=== PATIENT | male | born 1940 | race Two or more races ===

== ENCOUNTER 2024-01-29 14:25 | Emergency (ER) | payer OTHER ==
[~2024-01-29] VITALS: Ht 162.6 cm; Wt 62.7 kg
[2024-01-29 14:28] VITALS: TEMP 98
[2024-01-29 14:58] VITALS: PULSE 83; RESP 24; O2SAT 94
[2024-01-29] MEDS: IPRATROPIUM BROMIDE 0.5 MG/2.5 ML NEB SOLUTION NEB ONE (14:58)
[2024-01-29] MEDS: ALBUTEROL SULFATE 2.5 MG/0.5 ML NEB SOLUTION NEB ONE (14:58)
[2024-01-29] MEDS: PredniSONE 20 MG TABLET PO ONE (15:11)
[2024-01-29 15:13] VITALS: PULSE 81; RESP 20; O2SAT 100
[2024-01-29 15:15] VITALS: BP 144/71; PULSE 88; RESP 20
[2024-01-29 15:16] LABS: BASOPHILS % (AUTO) 0.5 % (0.0-2.0); EOSINOPHILS % (AUTO) 0.9 % (1.0-6.0); HEMATOCRIT 39.9 % (41-53); HEMOGLOBIN 13.3 g/dL (13.5-17.5); LYMPHOCYTES # (AUTO) 1.3 K/uL (1.0-4.8); LYMPHOCYTES % (AUTO) 10.6 % (22.0-44.0); MEAN CORPUSCULAR HEMOGLOBIN 29.5 pg (26.0-34.0); MEAN CORPUSCULAR HGB CONC 33.3 G/dL (31.0-37.0); MEAN CORPUSCULAR VOLUME 89 fL (80-100); MONOCYTES # (AUTO) 1.1 K/uL (0.1-1.0); MONOCYTES % (AUTO) 8.8 % (2.0-9.0); NEUTROPHILS # (AUTO) 9.5 K/uL (1.8-7.7); NEUTROPHILS % (AUTO) 79.2 % (40.0-70.0); PLATELET COUNT (AUTO) 191 K/uL (150-450); RED BLOOD CELL COUNT(AUTO) 4.51 MIL/uL (4.50-5.90); RED CELL DISTRIBUTION WIDTH 15.2 % (11.5-14.5)
[2024-01-29 15:24] LABS: ANION GAP 4 mmol/L (8-16); CARBON DIOXIDE 32 mmol/L (22-29); CHLORIDE 103 mmol/L (98-107); GLOMERULAR FILTR. RATE CALC > 60 mL/min (>60); GLUCOSE,RANDOM 117 mg/dL (70-110); POTASSIUM 4.2 mmol/L (3.5-5.1); SODIUM SERUM 138 mmol/L (136-145); UREA NITROGEN, BLOOD 17 mg/dL (7-18)
[2024-01-29 15:31] LABS: ALANINE AMINOTRANSFERASE 24 U/L (12-78); ALBUMIN 2.9 g/dL (3.4-5.0); ALKALINE PHOSPHATASE 86 U/L (46-116); ASPARTATE AMINOTRANSFERASE 23 U/L (15-37); BILIRUBIN,TOTAL 0.5 mg/dL (0.1-1.0); TOTAL PROTEIN, SERUM 7.4 g/dL (6.4-8.2)
[2024-01-29 15:32] LABS: TROPONIN I-HIGH SENSITIVITY 5 ng/L (<76)
[2024-01-29] MEDS ORDERED: AZIT250T9 PO (16:48)
[2024-01-29] MEDS ORDERED: ALBU18HF12 IH (16:48)
[2024-01-29] MEDS ORDERED: PRED-554 PO (16:48)
== END 2024-01-29 17:12 | disposition home or self-care (01) ==
LOC: EMS 14:25
DX: J44.1 Chronic obstructive pulmonary disease with (acute) exacerbation (principal); Z91.013 Allergy to seafood; Z91.048 Other nonmedicinal substance allergy status
CPT/HCPCS: 99285; 71045; 80053; 84484; 85025; 36415; 94640; 93005; J7512; J7613

== ENCOUNTER 2024-05-15 13:50 | Emergency (ER) | payer OTHER ==
[~2024-05-15] VITALS: Ht 170.2 cm; Wt 65.9 kg
[~2024-05-15 13:50] MED LIST: ALBU18HF12 IH; PRED-554 PO
[2024-05-15 13:54] VITALS: BP 137/70; PULSE 90; RESP 18; TEMP 98.5; O2SAT 95
[2024-05-15] MEDS ORDERED: CEPH-558 PO (15:39)
[2024-05-15] MEDS ORDERED: BACTDSB PO (15:39)
[2024-05-15] MEDS: LIDOCAINE/PF 1% 2 ML VIAL IM ONE (15:58)
[2024-05-15] MEDS: CefTRIAXone SODIUM 1 GM/VIAL IM ONE (15:58)
[2024-05-15] MEDS: IBUPROFEN 600 MG TABLET PO ONE (15:58)
== END 2024-05-15 16:06 | disposition home or self-care (01) ==
LOC: EMS 13:50
DX: J34.0 Abscess, furuncle and carbuncle of nose (principal); Z91.013 Allergy to seafood
CPT/HCPCS: 99283; 96372; J0696; J3490